=== PATIENT | male | born 1950 | race Caucasian/White ===

== ENCOUNTER 2017-07-02 12:32 | Emergency (ER) | payer OTHER, MEDICAID ==
[~2017-07-02] VITALS: Ht 182.9 cm; Wt 90.7 kg
[2017-07-02 12:37] VITALS: BP 120/75
[2017-07-02] MEDS ORDERED: methylPREDNISolone SOD SUCC 125 MG/2 ML VL IM ONE (13:30)
[2017-07-02] MEDS ORDERED: cefTRIAXone SOD 1,000 MG VL IM ONE (13:30)
== END 2017-07-02 14:12 | disposition home or self-care (01) ==
LOC: ER 12:32
DX: J20.9 Acute bronchitis, unspecified (principal); J02.9 Acute pharyngitis, unspecified; I10 Essential (primary) hypertension
CPT/HCPCS: 71046; 93005; 96372; 99284; J0696; J2930

== ENCOUNTER 2019-06-04 17:09 | Inpatient (IN) | payer OTHER, MEDICAID ==
[~2019-06-04] VITALS: Ht 180.3 cm; Wt 80.9 kg
[~2019-06-04 17:09] MED LIST: FENO1TAB42 PO; FLUO-125 PO
[2019-06-04 19:18] LABS: Eosinophils # (auto) 0.2 uL; Eosinophils % (auto) 1.5 % (0.0-7.0)
[2019-06-04 19:19] LABS: Basophils # (auto) 0 uL; Basophils % (auto) 0.3 % (0.0-2.0); Hematocrit 34.7 % (41.0-53.0); Lymphocytes % (auto) 12.5 % (10.0-50.0); Mean Corpuscular Hemoglobin 39.1 pg (28.0-32.0); Mean Corpuscular Hgb Conc. 34.6 g/dL (32.0-36.0); Mean Corpuscular Volume 112.8 fL (80.0-100.0); Monocytes # (auto) 1.4 uL; Monocytes % (auto) 8.9 % (0.0-12.0); Neutrophils # (auto) 12.2 uL; Neutrophils % (auto) 76.8 % (37.0-80.0); Platelet Count (auto) 604 10^3/uL (140-450); Red Blood Cells 3.07 10^6/uL (4.5-5.90); Red Cell Distribution Width 19.9 % (11.8-14.3); White Blood Cell 15.9 10^3/uL (4.4-10.8)
[2019-06-04 19:32] LABS: Calcium 9.5 mg/dL (8.5-10.1); Potassium 4.1 mmol/L (3.5-5.1)
[2019-06-04 19:35] LABS: Bilirubin, Total 2.9 mg/dL (0.2-1.0); Total Protein 8.1 g/dL (6.4-8.2)
[2019-06-04] MEDS ORDERED: SODIUM CHLORIDE 0.9% 1,000 ML IV ONE (20:15)
[2019-06-04] MEDS ORDERED: ONDANSETRON HCL 4 MG/2 ML VIAL IV ONE (20:15)
[2019-06-04] MEDS ORDERED: MORPHINE SULFATE 4 MG/ML SYR/VIAL IV ONE (20:15)
[2019-06-04] MEDS ORDERED: MORPHINE SULF INJ 2 MG/ML SYRINGE 1ML IV ONE (22:00)
[2019-06-04 22:24] LABS: Urine Bacteria NONE SEEN /hpf (None Seen); Urine Blood Negative /uL (Negative); Urine Specific Gravity 1.024 (1.001-1.035); Urine WBC 1 /hpf (0 - 3)
[2019-06-04] MEDS ORDERED: metroNIDAZOLE 500MG/100ML 100 ML IV ONE (23:00)
[2019-06-04] MEDS ORDERED: cefTRIAXone 1GM/50ML D5W 50 ML IV ONE (23:00)
[2019-06-04] MEDS ORDERED: DEXTROSE (50%) 50ML SYRG IV PRN (23:45)
[2019-06-04] MEDS: SODIUM CHLORIDE 0.9% 1,000 ML IV SCH (23:45)
[2019-06-04] MEDS ORDERED: ACETAMINOPHEN 325 MG TAB PO PRN (23:45)
[2019-06-04] MEDS ORDERED: SODIUM CHLORIDE 0.9% 500 ML IV ONE (23:45)
[2019-06-05] MEDS: ACCU-CHEK COMFORT CURVE STRIP VI SCH ×5 (01:27→23:33)
[2019-06-05] MEDS: MORPHINE SULFATE 4 MG/ML SYR/VIAL IV PRN ×4 (01:39→20:29)
--- NOTE | 2019-06-05 02:30 | NUR ---
MS admit from ER ALEXSANDRACHEYANNE admitted to MS after SBAR received. Patient oriented to KARINE HAHN, primary RN, unit, room 204, bed, and unit policies regarding patient care and visiting hours. Patient weighed by bedscale and encouraged to call if they need something.Pt is currently laying in bed with the rails up x2 and bed locked in lowest position. Explained use of call light and left it within reach. All questions and concerns addressed, patient verbalized understanding.
[2019-06-05 02:45] VITALS: BP 108/78
[2019-06-05] MEDS ORDERED: ATEN-60 PO (02:48)
[2019-06-05] MEDS ORDERED: ATOR20TA50 PO (02:48)
[2019-06-05] MEDS ORDERED: TAMS0.4C36 PO (02:48)
[2019-06-05] MEDS: metroNIDAZOLE 500MG/100ML 100 ML IV SCH ×3 (05:02→22:05)
[2019-06-05 05:06] VITALS: BP 121/72
[2019-06-05] MEDS: InsuLIN REG 1unit/0.01ml Soln (100units/ml) SC SCH ×5 (05:11→23:33)
[2019-06-05 05:27] LABS: Basophils # (auto) 0.1 uL; Eosinophils # (auto) 0.2 uL; Lymphocytes # (auto) 1.9 uL; Monocytes # (auto) 1.9 uL; Red Cell Distribution Width 19.6 % (11.8-14.3)
[2019-06-05 05:28] LABS: Basophils % (auto) 0.4 % (0.0-2.0); Hematocrit 34.7 % (41.0-53.0); Hemoglobin 11.4 g/dL (13.5-17.5); Lymphocytes % (auto) 9.4 % (10.0-50.0); Mean Corpuscular Hemoglobin 38.1 pg (28.0-32.0); Mean Corpuscular Hgb Conc. 32.8 g/dL (32.0-36.0); Mean Corpuscular Volume 116.2 fL (80.0-100.0); Monocytes % (auto) 9.6 % (0.0-12.0); Neutrophils # (auto) 15.8 uL; Neutrophils % (auto) 79.6 % (37.0-80.0); Platelet Count (auto) 553 10^3/uL (140-450); Red Blood Cells 2.98 10^6/uL (4.5-5.90); White Blood Cell 19.9 10^3/uL (4.4-10.8)
[2019-06-05 05:38] LABS: Albumin 2.8 g/dL (3.4-5.0); Calcium 8.9 mg/dL (8.5-10.1); Potassium 4.3 mmol/L (3.5-5.1)
[2019-06-05 05:42] LABS: BUN/Creatinine Ratio 13.9; Bilirubin, Total 4.8 mg/dL (0.2-1.0); Total Protein 7.5 g/dL (6.4-8.2)
[2019-06-05] MEDS: HYDROcodone-ACET 5/325MG TAB PO PRN (06:04)
--- NOTE | 2019-06-05 07:40 | NUR ---
OPENING SHIFT NOTE: PATIENT AWAKE, A/OX4, RESTING IN BED. RESPIRATIONS EVEN AND UNLABORED. TEMP RE-ASSESSED 98.2 AFTER NOC RN APPLIED ICE AND TYLENOL. PATIENT C/O PAIN AT THIS TIME 01/20, WILL MEDICATE ORDERED. UPDATED ON PLAN OF CARE. CALL LIGHT WITHIN REACH, VERBALIZED UNDERSTANDING ON USE, RETURNED DEMONSTRATION. BED IN LOWEST LOCKED POSITION. WILL CONTINUE TO MONITOR.
[2019-06-05] MEDS: PANTOPRAZOLE 40 MG TAB PO SCH (07:55)
[2019-06-05 09:00] VITALS: BP 111/63
--- NOTE | 2019-06-05 10:27 | NUR ---
PATIENT TAKEN DOWN TO RADIOLOGY.
--- NOTE | 2019-06-05 12:03 | NUR ---
MD MALIK ROUNDING, PATIENT NOT IN ROOM.
[2019-06-05] MEDS ORDERED: IOHEXOL 300 MG/ML 100ML BOTTLE IJ ONE (12:14)
--- NOTE | 2019-06-05 12:34 | NUR ---
PATIENT BACK IN ROOM FROM RADIOLOGY.
[2019-06-05] MEDS: DOCUSATE SOD 100 MG CAP PO SCH ×2 (12:46→22:00)
[2019-06-05] MEDS: SODIUM CHLORIDE 0.9% 1,000 ML IV SCH (15:20)
[2019-06-05 16:40] VITALS: BP 113/68
[2019-06-05] MEDS: ACETAMINOPHEN 500 MG TAB PO PRN (17:36)
--- NOTE | 2019-06-05 17:37 | NUR ---
PATIENT RUNNING A TEMP 0F 101.1. ICE PACKS AND BLANKETS REMOVED. TYLENOL GIVEN ORDERED. PATIENT RAN SIMILAR TEMP AT THE START OF SHIFT, AND NOC RN HAD ICE PACKS APPLIED, AND TYLENOL GIVEN.
--- NOTE | 2019-06-05 18:32 | NUR ---
PATIENT TEMP RE-ASSESSED 98.9
--- NOTE | 2019-06-05 19:12 | NUR ---
CARE ENDORSED TO DENISA FIERRO.
[2019-06-05 20:51] LABS: Hepatitis A Ab IgM Negative; Hepatitis B Core IgM Negative
[2019-06-05 20:52] LABS: Hepatitis B Surface Antigen Negative (Negative); Hepatitis C Antibody Negative (Negative)
[2019-06-05] MEDS ORDERED: cefTRIAXone 1GM/50ML D5W 50 ML IV SCH (21:00)
[2019-06-05 21:57] VITALS: BP 120/68
[2019-06-05] MEDS: TEMAZEPAM 15 MG CAP PO PRN (22:14)
[2019-06-06] MEDS: ONDANSETRON HCL 4 MG/2 ML VIAL IV PRN (02:23)
[2019-06-06] MEDS: SODIUM CHLORIDE 0.9% 1,000 ML IV SCH ×2 (02:31→15:08)
[2019-06-06] MEDS: MORPHINE SULFATE 4 MG/ML SYR/VIAL IV PRN ×4 (02:32→21:10)
[2019-06-06 05:31] VITALS: BP 120/69
[2019-06-06] MEDS: InsuLIN REG 1unit/0.01ml Soln (100units/ml) SC SCH ×4 (06:25→23:55)
[2019-06-06] MEDS: metroNIDAZOLE 500MG/100ML 100 ML IV SCH (06:25)
[2019-06-06] MEDS: ACCU-CHEK COMFORT CURVE STRIP VI SCH ×4 (06:25→23:55)
[2019-06-06 06:40] LABS: Eosinophils # (auto) 0 uL; Hemoglobin 10.6 g/dL (13.5-17.5); Red Cell Distribution Width 19.3 % (11.8-14.3)
[2019-06-06 06:43] LABS: Basophils # (auto) 0.4 uL; Basophils % (auto) 1.4 % (0.0-2.0); Hematocrit 29.7 % (41.0-53.0); Lymphocytes # (auto) 1.4 uL; Lymphocytes % (auto) 4.9 % (10.0-50.0); Mean Corpuscular Hemoglobin 39.7 pg (28.0-32.0); Mean Corpuscular Hgb Conc. 35.5 g/dL (32.0-36.0); Monocytes # (auto) 2.6 uL; Neutrophils # (auto) 24.5 uL; Neutrophils % (auto) 84.7 % (37.0-80.0); Platelet Count (auto) 450 10^3/uL (140-450); Red Blood Cells 2.66 10^6/uL (4.5-5.90); White Blood Cell 28.9 10^3/uL (4.4-10.8)
[2019-06-06 06:57] LABS: INR 1.55 (0.9-1.15); Partial Thromboplastin Time 29.3 sec (23.64-32.05)
[2019-06-06 06:58] LABS: Potassium 3.9 mmol/L (3.5-5.1)
[2019-06-06 07:04] LABS: Albumin 2.4 g/dL (3.4-5.0); BUN/Creatinine Ratio 11.8; Bilirubin, Total 6.5 mg/dL (0.2-1.0); Calcium 8.3 mg/dL (8.5-10.1); Total Protein 6.6 g/dL (6.4-8.2)
--- NOTE | 2019-06-06 07:40 | NUR ---
OPENING SHIFT NOTE: PATIENT AWAKE, A/OX4, RESTING IN BED. RESPIRATIONS EVEN AND UNLABORED. PATIENT C/O PAIN AT THIS TIME 01/20, WILL MEDICATE ORDERED. UPDATED ON PLAN OF CARE. PATIENT APPEARS TO HAVE INCREASE IN JAUNDICE COLOR. CALL LIGHT WITHIN REACH, VERBALIZED UNDERSTANDING ON USE, RETURNED DEMONSTRATION. BED IN LOWEST LOCKED POSITION. WILL CONTINUE TO MONITOR.
[2019-06-06 08:00] VITALS: BP 125/72
[2019-06-06] MEDS: DOCUSATE SOD 100 MG CAP PO SCH ×2 (08:35→21:09)
[2019-06-06] MEDS: PANTOPRAZOLE 40 MG TAB PO SCH (08:35)
--- NOTE | 2019-06-06 10:30 | NUR ---
DR. SHAYNA BELL.
[2019-06-06 12:00] VITALS: BP 132/74
[2019-06-06] MEDS ORDERED: VANCOMYCIN PER PHARMACY 0 MG IV SCH (12:45)
[2019-06-06] MEDS: VANCOMYCIN 1GM/250ML 250 ML IV SCH (15:07)
--- NOTE | 2019-06-06 16:40 | NUR ---
PATIENT TEMP OBTAINED FOR AFTERNOON VITALS 102.3 FROM 12:00 98.0. BLANKETS REMOVED, TYLENOL ADMINISTERED. PATIENT SHOWS NO SIGNS OF DISTRESS. WILL RE-ASSESS AFTER ABSORPTION.
[2019-06-06] MEDS: ACETAMINOPHEN 500 MG TAB PO PRN (16:43)
[2019-06-06 17:00] VITALS: BP 129/66
[2019-06-06] MEDS: PIPERACILLIN-TAZOB 3.375GM 100 ML IV SCH ×2 (18:15→23:54)
--- NOTE | 2019-06-06 19:05 | NUR ---
CARE ENDORSED TO DENISA FIERRO.
[2019-06-06] MEDS: TEMAZEPAM 15 MG CAP PO PRN (19:55)
[2019-06-06 22:19] VITALS: BP 122/70
[2019-06-07] MEDS: MORPHINE SULFATE 4 MG/ML SYR/VIAL IV PRN ×4 (03:19→21:57)
[2019-06-07 04:57] LABS: Hematocrit 30.5 % (41.0-53.0); Hemoglobin 10.5 g/dL (13.5-17.5); Mean Corpuscular Hgb Conc. 34.4 g/dL (32.0-36.0); Red Blood Cells 2.71 10^6/uL (4.5-5.90); White Blood Cell 23.4 10^3/uL (4.4-10.8)
[2019-06-07 04:59] VITALS: BP 120/70
[2019-06-07 04:59] LABS: Mean Corpuscular Hemoglobin 38.7 pg (28.0-32.0); Mean Corpuscular Volume 112.5 fL (80.0-100.0); Platelet Count (auto) 410 10^3/uL (140-450); Red Cell Distribution Width 18.9 % (11.8-14.3)
[2019-06-07 05:04] LABS: Band Neutrophils % (manual) 0; Basophils % (manual) 0 (0.0-2.0); Blast Cells 0; Metamyelocytes % 0; Myelocytes % 0; Promyelocytes % 0; Reactive Lymphocytes 0
[2019-06-07 05:14] LABS: Albumin 2.3 g/dL (3.4-5.0); Calcium 8.4 mg/dL (8.5-10.1); Magnesium 2.1 mg/dL (1.6-2.6); Potassium 3.8 mmol/L (3.5-5.1)
[2019-06-07 05:17] LABS: BUN/Creatinine Ratio 12.6; Bilirubin, Total 7.3 mg/dL (0.2-1.0); Phosphorus 1.3 mg/dL (2.5-4.90); Total Protein 6.6 g/dL (6.4-8.2)
[2019-06-07] MEDS: SODIUM CHLORIDE 0.9% 1,000 ML IV SCH ×2 (05:30→18:16)
[2019-06-07] MEDS: PIPERACILLIN-TAZOB 3.375GM 100 ML IV SCH ×4 (06:14→23:03)
[2019-06-07] MEDS: ACCU-CHEK COMFORT CURVE STRIP VI SCH ×4 (06:15→23:03)
[2019-06-07] MEDS: InsuLIN REG 1unit/0.01ml Soln (100units/ml) SC SCH ×4 (06:15→23:05)
[2019-06-07] MEDS: HYDROcodone-ACET 5/325MG TAB PO PRN ×3 (06:38→18:29)
[2019-06-07 08:00] VITALS: BP 143/73
[2019-06-07] MEDS: ONDANSETRON HCL 4 MG/2 ML VIAL IV PRN (08:27)
[2019-06-07 09:04] LABS: Lymphocytes % (manual) 4 (10.0-50.0); Monocytes % (manual) 6 (0-12)
[2019-06-07 09:05] LABS: Eosinophils % (manual) 2 (0-7)
[2019-06-07] MEDS: PANTOPRAZOLE 40 MG TAB PO SCH (09:21)
[2019-06-07] MEDS: DOCUSATE SOD 100 MG CAP PO SCH ×2 (09:21→23:02)
[2019-06-07 12:00] VITALS: BP 132/78
[2019-06-07] MEDS: VANCOMYCIN 1GM/250ML 250 ML IV SCH (15:39)
[2019-06-07 17:00] VITALS: BP 127/71
--- NOTE | 2019-06-07 18:05 | NUR ---
PT TO HAVE BARIUM ENEMA TOMORROW 06/08. PREP PER PROTOCOL, TO BE NPO AFTER LUNCH TODAY, WITH TAP WATER ENEMA TODAY AT 1700. ENEMA COMPLETE.
[2019-06-07 22:00] VITALS: BP 129/72
[2019-06-07] MEDS: TEMAZEPAM 15 MG CAP PO PRN (23:04)
[2019-06-08] MEDS: MORPHINE SULFATE 4 MG/ML SYR/VIAL IV PRN ×4 (03:24→23:20)
[2019-06-08 05:00] VITALS: BP 126/70
[2019-06-08] MEDS: InsuLIN REG 1unit/0.01ml Soln (100units/ml) SC SCH ×3 (06:00→17:29)
[2019-06-08 06:06] LABS: Mean Corpuscular Volume 111.3 fL (80.0-100.0)
[2019-06-08 06:07] LABS: Amylase 26 U/L (25-115); Lipase 113 U/L (73-393)
[2019-06-08] MEDS: ACCU-CHEK COMFORT CURVE STRIP VI SCH ×3 (06:07→17:30)
[2019-06-08] MEDS: PIPERACILLIN-TAZOB 3.375GM 100 ML IV SCH ×4 (06:07→23:19)
[2019-06-08 06:08] LABS: Hematocrit 29.2 % (41.0-53.0); Hemoglobin 10.4 g/dL (13.5-17.5); Mean Corpuscular Hemoglobin 39.6 pg (28.0-32.0); Mean Corpuscular Hgb Conc. 35.6 g/dL (32.0-36.0); Platelet Count (auto) 398 10^3/uL (140-450); Red Blood Cells 2.62 10^6/uL (4.5-5.90); Red Cell Distribution Width 18.7 % (11.8-14.3); White Blood Cell 15.7 10^3/uL (4.4-10.8)
[2019-06-08] MEDS: SODIUM CHLORIDE 0.9% 1,000 ML IV SCH (06:08)
[2019-06-08 06:13] LABS: Potassium 3.7 mmol/L (3.5-5.1)
[2019-06-08 06:21] LABS: BUN/Creatinine Ratio 12.1; Calcium 8.4 mg/dL (8.5-10.1)
[2019-06-08 07:03] LABS: Basophils % (manual) 0 (0.0-2.0); Blast Cells 0; Metamyelocytes % 0; Myelocytes % 0; Promyelocytes % 0; Reactive Lymphocytes 0
[2019-06-08 07:52] LABS: Band Neutrophils % (manual) 1; Eosinophils % (manual) 1 (0-7); Lymphocytes % (manual) 9 (10.0-50.0); Monocytes % (manual) 7 (0-12)
[2019-06-08 09:00] VITALS: BP 136/78
[2019-06-08] MEDS: DOCUSATE SOD 100 MG CAP PO SCH ×2 (09:29→21:29)
[2019-06-08] MEDS: PANTOPRAZOLE 40 MG TAB PO SCH (09:29)
--- NOTE | 2019-06-08 10:30 | NUR ---
Dr. Irving at bedside. Spoke with Dr. Vazquez and Dr. Gonzales regarding plan of care. Will carry out procedures per orders.
--- NOTE | 2019-06-08 11:23 | NUR ---
Nutrition Assessment Notes please see attached link for complete assessment Est. Needs based on BW (80 kg):1054-8738 kcal (25-30 kcal/kgIBW), 80-96gms pro (1.0-1.2 gms/kgBW). Will continue to monitor pertinent labs and reassess nutrient need prn Addendum: 06/08/19 at [address] Amended: Links added.
[2019-06-08] MEDS: HYDROcodone-ACET 5/325MG TAB PO PRN ×2 (12:06→21:30)
[2019-06-08 13:00] VITALS: BP 137/75
--- NOTE | 2019-06-08 14:20 | NUR ---
Patient to Operations Label Clerk for procedure.
[2019-06-08] MEDS ORDERED: fentaNYL CITRATE 100 MCG/2 ML VL ONE (14:37)
[2019-06-08] MEDS ORDERED: MIDAZOLAM HCL 1MG/1ML-2 ML VIAL ONE (14:37)
[2019-06-08] MEDS ORDERED: IOHEXOL 350 MG/ML 100ML IJ ONE ×2 (14:41→14:45)
[2019-06-08] MEDS ORDERED: LIDOCAINE 2%HCL (LOCAL ANESTH.) INJ 20ML MDV ONE (14:42)
--- NOTE | 2019-06-08 15:30 | NUR ---
Patient at procedure Addendum: 06/08/19 at 1707 by Mony Calixto RN Amended: Links added.
--- NOTE | 2019-06-08 15:30 | NUR ---
Patient in procedure Addendum: 06/08/19 at 1707 by Mony Calixto RN Amended: Links added.
[2019-06-08] MEDS ORDERED: ONDANSETRON HCL 4 MG/2 ML VIAL ONE (16:07)
[2019-06-08 17:00] VITALS: BP 166/85
--- NOTE | 2019-06-08 17:08 | NUR ---
Patient at procedure Addendum: 06/08/19 at 1709 by Mony Calixto RN Amended: Links added.
--- NOTE | 2019-06-08 17:09 | NUR ---
patient in procedure Addendum: 06/08/19 at 1709 by Mony Calixto RN Amended: Links added.
[2019-06-08] MEDS: TEMAZEPAM 15 MG CAP PO PRN (21:30)
[2019-06-08 22:00] VITALS: BP 136/83
[2019-06-09] MEDS: ACCU-CHEK COMFORT CURVE STRIP VI SCH ×3 (00:30→12:21)
[2019-06-09] MEDS: InsuLIN REG 1unit/0.01ml Soln (100units/ml) SC SCH ×3 (00:30→12:21)
[2019-06-09 05:00] VITALS: BP 140/77
[2019-06-09] MEDS: SODIUM CHLORIDE 0.9% 1,000 ML IV SCH ×2 (06:05→10:25)
[2019-06-09] MEDS: PIPERACILLIN-TAZOB 3.375GM 100 ML IV SCH ×2 (06:06→12:02)
[2019-06-09] MEDS: MORPHINE SULFATE 4 MG/ML SYR/VIAL IV PRN ×2 (06:08→12:02)
[2019-06-09] MEDS: ONDANSETRON HCL 4 MG/2 ML VIAL IV PRN (06:42)
--- NOTE | 2019-06-09 07:30 | NUR ---
Opening Shift Note Assumed care of patient, awake and alert. No S/S of distress/SOB, but patient reports generalized body pain of 5/10. Instructed on POC and to call for assist PRN, and patient verbalized understanding. Will continue to monitor for changes Q1hr and PRN.
[2019-06-09 08:00] VITALS: BP 134/79
[2019-06-09] MEDS: PANTOPRAZOLE 40 MG TAB PO SCH (08:28)
[2019-06-09] MEDS: HYDROcodone-ACET 5/325MG TAB PO PRN (08:28)
[2019-06-09] MEDS: DOCUSATE SOD 100 MG CAP PO SCH (08:28)
[2019-06-09 09:00] VITALS: BP 134/79
--- NOTE | 2019-06-09 10:00 | NUR ---
Dr. Harika MD, at bedside.
[2019-06-09 10:54] LABS: Hemoglobin 10.2 g/dL (13.5-17.5); White Blood Cell 13.7 10^3/uL (4.4-10.8)
[2019-06-09 10:55] LABS: Hematocrit 29.6 % (41.0-53.0); Mean Corpuscular Hemoglobin 38.6 pg (28.0-32.0); Mean Corpuscular Hgb Conc. 34.7 g/dL (32.0-36.0); Mean Corpuscular Volume 111.3 fL (80.0-100.0); Platelet Count (auto) 362 10^3/uL (140-450); Red Blood Cells 2.66 10^6/uL (4.5-5.90); Red Cell Distribution Width 18.7 % (11.8-14.3)
[2019-06-09 11:04] LABS: Band Neutrophils % (manual) 0; Basophils % (manual) 0 (0.0-2.0); Blast Cells 0; Myelocytes % 0; Promyelocytes % 0; Reactive Lymphocytes 0
[2019-06-09 11:12] LABS: Calcium 8.4 mg/dL (8.5-10.1); Potassium 3.7 mmol/L (3.5-5.1)
[2019-06-09 11:15] LABS: BUN/Creatinine Ratio 11.3; Total Protein 6.5 g/dL (6.4-8.2)
[2019-06-09 11:22] LABS: Eosinophils % (manual) 2 (0-7); Lymphocytes % (manual) 10 (10.0-50.0); Metamyelocytes % 2; Monocytes % (manual) 9 (0-12)
--- NOTE | 2019-06-09 12:11 | NUR ---
Cholecystostomy drain capped per MD order at 1200; no report from patient at this time of worsening pain, fever, or bleeding from drain. Drained 200 mL of dark cloudy fluid. No distress noted at this time; patient tolerated well.
[2019-06-09 13:00] VITALS: BP 139/80
[2019-06-09] MEDS ORDERED: FENO1TAB42 PO (14:18)
[2019-06-09] MEDS ORDERED: TAMS0.4C36 PO (14:18)
[2019-06-09] MEDS ORDERED: FLUO-125 PO (14:18)
[2019-06-09] MEDS ORDERED: LEVO750T64 PO (14:18)
[2019-06-09] MEDS ORDERED: ATEN-60 PO (14:18)
[2019-06-09] MEDS ORDERED: DOCU100C8 PO (14:18)
[2019-06-09] MEDS ORDERED: PANT40T PO (14:18)
[2019-06-09] MEDS ORDERED: ATOR20TA50 PO (14:18)
[2019-06-09 14:45] VITALS: BP 139/80
--- NOTE | 2019-06-09 16:28 | NUR ---
Discharge instructions given as ordered. Encourage to follow up with PMD as instructed. All questions and concerns addressed. Patient verbalized understanding. Medication reconciliation form completed and copy given to patient. IV removed with catheter intact, pressure dressing applied. Patient taken to vehicle via wheelchair with all personal belongings, accompanied by staff and friend. No distress noted at time of departure.
== END 2019-06-09 16:00 | disposition home or self-care (01) | DRG 871 ==
LOC: ER 17:10 → OVERFLOW 17:11 → CENTRAL 06-05 03:38
PROVIDERS: ADMIT Nurse Practitioner; ATTEND Internal Medicine
PROC: 0F9730Z Drainage of Common Hepatic Duct with Drainage Device, Percutaneous Approach (ICD-10-PCS; principal; 2019-06-08)
PROC: BF101ZZ Fluoroscopy of Bile Ducts using Low Osmolar Contrast (ICD-10-PCS; 2019-06-08)
DX: A41.9 Sepsis, unspecified organism (principal); N17.0 Acute kidney failure with tubular necrosis; E43 Unspecified severe protein-calorie malnutrition; C18.9 Malignant neoplasm of colon, unspecified; C19 Malignant neoplasm of rectosigmoid junction; K80.01 Calculus of gallbladder with acute cholecystitis with obstruction; E11.9 Type 2 diabetes mellitus without complications; F41.9 Anxiety disorder, unspecified; E78.5 Hyperlipidemia, unspecified; I10 Essential (primary) hypertension; Z79.899 Other long term (current) drug therapy; Z68.24 Body mass index [BMI] 24.0-24.9, adult; R16.0 Hepatomegaly, not elsewhere classified
CPT/HCPCS: 36415; 74176; 74177; 74181; 76705; 76942; 78226; 80048; 80053; 80074; 81001; 82105; 82150; 82378; 82962; 83036; 83690; 83735; 84100; 85007; 85025; 85027; 85610; 85730; 87040; 93005; 99152; 99153; G0378; J0696; J1815; J2250; J2405; J2543; J3490

== ENCOUNTER 2019-07-14 16:19 | Emergency (ER) | payer OTHER, MEDICAID ==
[~2019-07-14] VITALS: Ht 180.3 cm; Wt 64.4 kg
[~2019-07-14 16:19] MED LIST changes: +ATEN-60 PO; +ATOR20TA50 PO; +FENO145T27 PO; -FENO1TAB42 PO; +PANT40T PO; +TAMS0.4C36 PO
[2019-07-14 17:17] LABS: Basophils # (auto) 0.1 uL; Basophils % (auto) 0.6 % (0.0-2.0); Eosinophils # (auto) 0.1 uL; Eosinophils % (auto) 0.5 % (0.0-7.0); Hematocrit 26.5 % (41.0-53.0); Hemoglobin 8.7 g/dL (13.5-17.5); Lymphocytes # (auto) 1.8 uL; Lymphocytes % (auto) 14.8 % (10.0-50.0); Mean Corpuscular Hemoglobin 31.7 pg (28.0-32.0); Mean Corpuscular Hgb Conc. 32.9 g/dL (32.0-36.0); Mean Corpuscular Volume 96.6 fL (80.0-100.0); Neutrophils # (auto) 9.1 uL; Neutrophils % (auto) 76.1 % (37.0-80.0); Platelet Count (auto) 428 10^3/uL (140-450); Red Blood Cells 2.74 10^6/uL (4.5-5.90); Red Cell Distribution Width 17.9 % (11.8-14.3)
[2019-07-14 17:33] LABS: Albumin 1.8 g/dL (3.4-5.0); Calcium 8.4 mg/dL (8.5-10.1); Potassium 3.5 mmol/L (3.5-5.1)
[2019-07-14 17:37] LABS: BUN/Creatinine Ratio 13.8; Bilirubin, Total 3.5 mg/dL (0.2-1.0)
[2019-07-14] MEDS ORDERED: ONDANSETRON HCL 4 MG/2 ML VIAL IV ONE (20:15)
[2019-07-14] MEDS ORDERED: MORPHINE SULFATE 4 MG/ML SYR/VIAL IV ONE (20:15)
[2019-07-14 23:01] VITALS: BP 136/46
[2019-07-14] MEDS ORDERED: HYDROcodone-ACET 10/325MG TAB PO ONE ×2 (23:45)
== END 2019-07-14 23:39 | disposition home or self-care (01) ==
LOC: EDUNIT# 16:19 → EDBD 16:19 → ER 16:19
DX: C78.5 Secondary malignant neoplasm of large intestine and rectum (principal); C22.9 Malignant neoplasm of liver, not specified as primary or secondary; I10 Essential (primary) hypertension; E11.9 Type 2 diabetes mellitus without complications; Z79.899 Other long term (current) drug therapy
CPT/HCPCS: 36415; 74176; 76705; 80053; 83690; 85025; 96374; 96375; 99284; J2270; J2405

== ENCOUNTER 2019-07-28 18:07 | Emergency (ER) | payer OTHER, MEDICAID ==
[~2019-07-28] VITALS: Ht 180.3 cm; Wt 77.1 kg
[2019-07-28 23:51] LABS: Basophils # (auto) 0.1 uL; Basophils % (auto) 0.9 % (0.0-2.0); Eosinophils # (auto) 0.5 uL; Eosinophils % (auto) 4.6 % (0.0-7.0); Hematocrit 29.9 % (41.0-53.0); Hemoglobin 9.9 g/dL (13.5-17.5); Lymphocytes # (auto) 2.4 uL; Lymphocytes % (auto) 19.8 % (10.0-50.0); Mean Corpuscular Hemoglobin 31.1 pg (28.0-32.0); Mean Corpuscular Hgb Conc. 33.2 g/dL (32.0-36.0); Mean Corpuscular Volume 93.8 fL (80.0-100.0); Monocytes # (auto) 1.4 uL; Monocytes % (auto) 11.4 % (0.0-12.0); Neutrophils # (auto) 7.5 uL; Neutrophils % (auto) 63.3 % (37.0-80.0); Platelet Count (auto) 494 10^3/uL (140-450); Red Blood Cells 3.19 10^6/uL (4.5-5.90); Red Cell Distribution Width 17.4 % (11.8-14.3); White Blood Cell 11.9 10^3/uL (4.4-10.8)
[2019-07-29 00:11] LABS: INR 1.36 (0.9-1.15); Partial Thromboplastin Time 35.6 sec (23.64-32.05)
[2019-07-29 00:14] LABS: Albumin 2.3 g/dL (3.4-5.0); Calcium 8.9 mg/dL (8.5-10.1); Potassium 3.8 mmol/L (3.5-5.1)
[2019-07-29 00:16] LABS: BUN/Creatinine Ratio 17.1
[2019-07-29 00:18] LABS: Bilirubin, Total 3.8 mg/dL (0.2-1.0); Total Protein 8.1 g/dL (6.4-8.2)
[2019-07-29 02:00] VITALS: BP 129/66
== END 2019-07-29 03:42 | disposition home or self-care (01) ==
LOC: ER 18:08
DX: K80.20 Calculus of gallbladder without cholecystitis without obstruction (principal); T85.520D Displacement of bile duct prosthesis, subsequent encounter
CPT/HCPCS: 36415; 74176; 80053; 82140; 82150; 83690; 85025; 85610; 85730